=== PATIENT | female | born 1965 | race Caucasian/White ===

== ENCOUNTER → 2025-09-08 | Outpatient (CLI) | payer BC, SELFPAY ==
--- NOTE | 2025-09-08 13:09 | XR_ITS ---
Examination: Lumbar spine, 5 views Technique: Lumbar spine AP, lateral, coned lateral lower lumbar spine, bilateral obliques 5 views standing Exam date and time: September 08, 2025, 1323 hours INDICATIONS: Low back pain beginning 6 months ago FINDINGS: Moderate diffuse facet arthropathy No lumbar fracture Minimal anterolisthesis L5 on S1 Mild to moderate disc narrowing L5-S1 Mild lumbar spondylosis IMPRESSION: Mild to moderate degenerative disc disease L5-S1
--- NOTE | 2025-09-08 13:09 | XR_ITS ---
EXAMINATION: Cervical spine, 5 views Technique: Cervical spine AP, AP odontoid, lateral, bilateral obliques, 5 views Exam date and time: September 08, 2025, 1323 hours INDICATIONS: Neck pain radiating down the left arm numbness in the left arm 2 months FINDINGS: Straightening normal cervical doses No cervical fracture Intact odontoid No significant cervical disc narrowing No neuroforaminal stenosis IMPRESSION: No cervical fracture or cervical disc narrowing As clinically warranted, MRI cervical spine without contrast follow-up would best assess for soft tissue disc protrusion producing radicular left arm symptoms
== END | disposition home or self-care (01) ==
LOC: CDIM 12:56
PROVIDERS: PCP Family Medicine; Referring Provider Chiropractor; Visit Provider Chiropractor
DX: M51.370 Other intervertebral disc degeneration, lumbosacral region with discogenic back pain only (principal); M54.2 Cervicalgia
CPT/HCPCS: 72050; 72110